=== PATIENT | female | born 1965 | race Caucasian/White ===

== ENCOUNTER 2018-10-10 22:59 | Emergency (ER) | payer BC ==
[~2018-10-10] VITALS: Ht 162.6 cm; Wt 97.5 kg
[2018-10-10] MEDS ORDERED: LISINOPRIL-HCT1 EAC2 PO (23:20)
[2018-10-10] MEDS ORDERED: ASPIR 8181 MG PO (23:22)
[2018-10-10] MEDS ORDERED: TRAZODONE HCL50 MG PO (23:23)
[2018-10-10] MEDS ORDERED: ESTRACE1 MG PO (23:24)
[2018-10-10] MEDS ORDERED: ALL DAY ALLERGY10 M3 PO (23:27)
[2018-10-10] MEDS ORDERED: GLUCOPHAGE500 MG PO (23:27)
[2018-10-10] MEDS ORDERED: LIPITOR40 MG PO (23:28)
[2018-10-10] MEDS ORDERED: CITALOPRAM HBR40 MG PO (23:28)
[2018-10-11] MEDS ORDERED: AUGMENTIN 875-1 EACH PO (00:25)
== END 2018-10-11 00:35 | disposition home or self-care (01) ==
LOC: ED 22:59
DX: J32.0 Chronic maxillary sinusitis (principal); E11.9 Type 2 diabetes mellitus without complications; I10 Essential (primary) hypertension; E78.5 Hyperlipidemia, unspecified; Z90.710 Acquired absence of both cervix and uterus; Z79.82 Long term (current) use of aspirin; Z79.899 Other long term (current) drug therapy; Z79.84 Long term (current) use of oral hypoglycemic drugs
CPT/HCPCS: 99283